=== PATIENT | female | born 1980 | race Caucasian/White ===

== ENCOUNTER 2022-12-28 03:43 | Emergency (ER) | payer OTHER, MEDICAID, SELFPAY ==
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
[2022-12-28 03:54] VITALS: BP 123/85; PULSE 124; RESP 22; TEMP 36.8; O2SAT 96; BMI 29.2
[2022-12-28] MEDS: ACETAMINOPHEN 325 MG TABLET PO (04:04)
[2022-12-28] MEDS: IBUPROFEN 400 MG TABLET PO (04:05)
== END 2022-12-28 04:19 | disposition home or self-care (01) ==
PROVIDERS: Emergency Provider Emergency Medicine
DX: Z02.89 Encounter for other administrative examinations (principal); S49.91XA Unspecified injury of right shoulder and upper arm, initial encounter; R51.9 Headache, unspecified; Y04.2XXA Assault by strike against or bumped into by another person, initial encounter
CPT/HCPCS: 99283

== ENCOUNTER 2023-03-30 09:54 | Day surgery (SDC) | payer OTHER, MEDICAID, SELFPAY ==
[2023-03-30] VITALS (7 sets, daily range): BP systolic 110–128; BP diastolic 79–89; PULSE 73–97; RESP 10–25; TEMP 36.4–36.9; O2SAT 97–100
--- NOTE | 2023-03-30 | PATH_ITS ---
[facility] Accession Number: [id number] No. of containers..01 Tissue . 01 Material submitted: . cecum - CECAL POLYP . 01 Diagnosis: Cecal Polyp: Sessile serrated adenoma. V 04/01/2023 1430 Local . 01 Electronically signed: . Jeffrey Swann MD, PhD, Pathologist NPI- [id number] . 01 Gross description: . CECAL POLYP: Received in formalin is 1 fragment(s) of fulton, soft tissue measuring 0.6 x 0.4 x 0.3 cm submitted entirely in 1 cassette(s) /[facility] 03/31/2023 1644 Local . 01 Pathologist provided ICD-10: D12.0 . 01 CPT . 356759 Specimen Comment: A courtesy copy of this report has been sent to [phone] Performed at: 01 [facility] [address] [place] [address], [place], [place] [id number] MD Rob Mcconnell MD Phone: [phone]
--- NOTE | 2023-03-30 10:23 | P.HP_ITS ---
History of Present Illness History of Present Illness Date Patient Seen: 03/30/23 Time Patient Seen: 10:23 Chief complaint: Dx Colonoscopy w/poss bx Narrative: Personal history of colon polyps family history of colon cancer. [facility] Social History Smoking Status: Never smoker Meds Home Medications and Allergies Home Medications Medication Instructions Recorded Confirmed Type buspirone 15 mg tablet 15 mg PO DAILY 03/30/23 03/30/23 History citalopram 40 mg tablet 40 mg PO DAILY 03/30/23 03/30/23 History duloxetine 60 mg capsule,delayed 60 mg PO DAILY 03/30/23 03/30/23 History release hydrochlorothiazide 25 mg tablet 25 mg PO DAILY 03/30/23 03/30/23 History oxycodone-acetaminophen 5 mg-325 5 - 325 tab PO DAILY 03/30/23 03/30/23 History mg tablet potassium citrate 10 mEq (1,080 10 meq PO DAILY 03/30/23 03/30/23 History mg) tablet,extended release pregabalin 100 mg capsule 100 mg PO DAILY 03/30/23 03/30/23 History sumatriptan succinate 100 mg tablet 100 mg PO DAILY 03/30/23 03/30/23 History trazodone 100 mg tablet 100 mg PO DAILY 03/30/23 03/30/23 History Allergies Allergy/AdvReac Type Severity Reaction Status Date / Time hazelnut Allergy Verified 03/30/23 10:08 Review of Systems Review of Systems ROS: Yes All systems reviewed with the patient and are negative except as otherwise documented Exam Const General: cooperative HENMT Head: normal to inspection Eyes General: appearance normal, both eyes and all related structures Neck Neck: normal visual inspection Chest Chest: normal inspection of the chest Resp Effort & Inspection: normal respiratory effort Cardio Rate: regular rate GI Inspection: normal to inspection Skin General: no rashes or lesions noted Neuro General: patient alert and patient awake Extrem General: normal to inspection and no pedal edema Psych Appearance: grossly normal Assessment & Plan Assessment & Plan narrative: This is a 42-year-old female with a family history of colon cancer and a personal history of colon polyps. She reports a history of hemorrhoids. Colonoscopy is pursued today.
--- NOTE | 2023-03-30 10:24 | PM.PREOP ---
Pre-operative Note Interval Note History & Physical reviewed/Exam performed by Physician: Yes Changes to H&P: No ASA Class (for procedural sedation): II
[2023-03-30] MEDS: LACTATED RINGERS 1,000 ML 100 ML IV (10:25)
--- NOTE | 2023-03-30 11:53 | P.OP.COLON_ITS ---
Operative Date/Time/Diagnoses Date of procedure: 03/30/23 Time of procedure: 11:53 Pre-op diagnosis: Personal history of colon polyps family history of colon cancer Post-op diagnosis: same Procedure & Clinicians Study performed: Colonoscopy with hot snare polypectomy Same procedure as scheduled: Yes Indications: Personal history of colon polyps family history of colon cancer. Surgeon: Conner Ambriz Procedure Notes SCOAP/Timeout: Done Procedure in detail: After the risks and benefits were explained, written and verbal informed consent was obtained. The patient was brought into the procedure room and placed into t he left lateral decubitus position. Please see anesthesia notes for sedation details. Digital rectal examination was accomplished. The scope was introduced into the patient and advanced under direct visualization to the cecum as identified by the appendiceal orifice and ileocecal valve. The scope was slowly withdrawn to carefully examine the mucosa for any defects or lesions. Comprehensive imaging was accomplished throughout the rectum including the dentate line. The colon was decompressed, the scope was then removed from the patient who tolerated the procedure well. Pediatric colonoscope Bowel prep adequate Scope withdrawal time: 9 minutes Sedation minutes: 15 Complications: none Impression: There was a 7 mm sessile polyp in the cecum removed with hot snare. The terminal ileum was interrogated and appeared visually normal. No additional pathology was appreciated throughout. Endoscopic diagnosis Cecal polyp Post-procedure Plan for aftercare: 1. Await histopathology 2. Repeat colonoscopy 5 years. Disposition: PACU
== END 2023-03-30 12:38 | disposition home or self-care (01) ==
PROVIDERS: PCP Family Medicine; Referring Provider Internal Medicine Gastroenterology; Visit Provider Internal Medicine Gastroenterology
PROC: 0DJD8ZZ Inspection of Lower Intestinal Tract, Via Natural or Artificial Opening Endoscopic (ICD-10-PCS; CPT 45378; principal; 2023-03-30 11:00)
DX: Z12.11 Encounter for screening for malignant neoplasm of colon (principal); Z86.010 Personal history of colon polyps; Z80.0 Family history of malignant neoplasm of digestive organs; D12.0 Benign neoplasm of cecum
CPT/HCPCS: 45385; J2704

== ENCOUNTER 2023-12-09 10:29 | Emergency (ER) | payer OTHER, SELFPAY ==
[2023-12-09 10:32] VITALS: BP 134/82; PULSE 112; RESP 16; TEMP 36.7; O2SAT 99; BMI 29.2
[2023-12-09 10:42] VITALS: PULSE 98
[2023-12-09 10:44] VITALS: BP 112/81; PULSE 98; RESP 15; O2SAT 97
--- NOTE | 2023-12-09 10:52 | DI.RAD.S_ITS ---
PROCEDURE: XR CHEST 1V INDICATIONS: chest pain TECHNIQUE: One view of the chest was acquired. COMPARISON: None. FINDINGS: Surgical changes and devices: None. Lungs and pleura: Lungs are clear. No pleural effusions or pneumothorax. Mediastinum: Mediastinal contours appear normal. Heart size is normal. Bones and chest wall: No suspicious bony lesions. Overlying soft tissues appear unremarkable. IMPRESSION: No acute cardiopulmonary abnormality is seen. Dictated by: Rosalba Becerra M.D. on 12/09/2023 at 11:18 Approved by: Rosalba Becerra M.D. on 12/09/2023 at 11:18
[2023-12-09 11:00] VITALS: BP 105/80; PULSE 106; RESP 20; O2SAT 98
[2023-12-09 11:01] LABS: Add Manual Diff / Slide Review NO; Basophils Absolute Auto 0 /uL (0-100); Basophils Percent Auto 0.7 % (0-2); Eosinophils Absolute Auto 100 /uL (0-450); Eosinophils Percent Auto 1.7 % (2-4); Hematocrit 40.1 % (36-46); Hemoglobin 13.8 g/dL (12.0-16.0); Lymphocytes Absolute Auto 1500 /uL (1100-4500); Mean Corpuscular HGB Conc 34.4 % (30-36); Mean Corpuscular Hemoglobin 29.3 PG (26-34); Mean Corpuscular Volume 85.4 fL (80-100); Monocytes Absolute Auto 500 /uL (0-900); Monocytes Percent Auto 7.2 % (3-14); Neutrophils Absolute Auto 4800 /uL (1500-7000); Neutrophils Percent Auto 68.4 % (50-75); Platelet Count 348 X10^3/uL (150-400); Red Blood Cell Count 4.69 X10^6/uL (4.0-5.2); Red Cell Distribution Width 13.7 % (11.6-14.8)
[2023-12-09 11:02] LABS: Prothrombin Time 11.5 SECONDS (9.4-12.5)
[2023-12-09 11:04] LABS: PTT Partial Thromboplastin Tim 30 SECONDS (25.1-36.5)
[2023-12-09 11:07] LABS: Alanine Aminotransferase 18 IU/L (<35); Albumin 4.7 g/dL (3.5-5.0); Albumin Globulin Ratio 1.3 (1.0-2.8); Alkaline Phosphatase 48 U/L (38-126); Aspartate Aminotransferase 21 IU/L (14-36); BUN Creatinine Ratio 17.9 (6-22); Bilirubin Total 0.6 mg/dL (0.2-1.3); Blood Urea Nitrogen 12 mg/dL (7-17); Calcium 9.9 mg/dL (8.4-10.2); Carbon Dioxide 25 mmol/L (22-32); Chloride 101 mmol/L (98-107); Creatine Kinase 71 U/L (30-135); Estimated Glomerular Filt Rate > 60 mL/min (>60); Globulin 3.5 g/dL (1.7-4.1); Glucose 104 mg/dL (70-100); HEMOLYSIS < 15 (0-50); Lipase 73 U/L (23-300); Potassium 3.9 mmol/L (3.4-5.1); Sodium 137 mmol/L (137-145); Total Protein 8.2 g/dL (6.3-8.2)
[2023-12-09 11:13] LABS: D Dimer 278 ng/ml (<500)
--- NOTE | 2023-12-09 11:14 | ED.CHESTPAIN ---
HPI - Chest Pain General Chief Complaint: Chest Pain Stated Complaint: chest pain sent by [facility] Time Seen by Provider: 12/09/23 10:44 Source: patient Mode of arrival: Ambulatory Limitations: no limitations History of Present Illness HPI narrative: 42-year-old female with history of anxiety, depression, PTSD, chronic back pain presents by private vehicle from home for central chest pain for 2-3 weeks. She was seen approximately 1 week ago by her PCP who performed bloodwork, an EKG, and chest XR which were normal. Patient has echo scheduled this week with PCP but came to the ED to make sure all the tests are done before she sees her PCP. Pain is central, under her breastbone, wraps around her ribs, constant. Nothing seems to make it better or worse. Denies family hx of heart disease. Related Data Home Medications Medication Instructions Recorded Confirmed buspirone 15 mg tablet 15 mg PO DAILY 03/30/23 03/30/23 citalopram 40 mg tablet 40 mg PO DAILY 03/30/23 03/30/23 duloxetine 60 mg capsule,delayed 60 mg PO DAILY 03/30/23 03/30/23 release hydrochlorothiazide 25 mg tablet 25 mg PO DAILY 03/30/23 03/30/23 oxycodone-acetaminophen 5 mg-325 5 - 325 tab PO DAILY 03/30/23 03/30/23 mg tablet potassium citrate 10 mEq (1,080 10 meq PO DAILY 03/30/23 03/30/23 mg) tablet,extended release pregabalin 100 mg capsule 100 mg PO DAILY 03/30/23 03/30/23 sumatriptan succinate 100 mg tablet 100 mg PO DAILY 03/30/23 03/30/23 trazodone 100 mg tablet 100 mg PO DAILY 03/30/23 03/30/23 Allergies Allergy/AdvReac Type Severity Reaction Status Date / Time hazelnut Allergy Verified 12/09/23 10:38 amitriptyline AdvReac Intermediate Chest Pain Verified 12/09/23 10:38 Review of Systems Review of Systems Narrative: Negative except as noted above Patient History Social History household members: significant other Smoking Status: Current every day smoker alcohol intake: current Smoking Status: Current every day smoker tobacco type: vaping alcohol intake frequency: a few times a month Substance Use Type: does not use Exam Initial Vital Signs Initial Vital Signs: Vital Signs Temperature 98.1 F 12/09/23 10:32 Pulse Rate 112 H 12/09/23 10:32 Respiratory Rate 16 12/09/23 10:32 Blood Pressure 134/82 12/09/23 10:32 Pulse Oximetry 99 12/09/23 10:32 Oxygen Delivery Method Room Air 12/09/23 10:32 Const: Awake, alert, no acute distress, nontoxic appearing Cardiac: regular rate, regular rhythm RESP: unlabored, clear bilaterally, no wheezing GI: Atraumatic, soft, pushing on midepigastric region causes pain in the upper chest MSK: Atraumatic, full range of motion, pulses equal Skin: Warm, Dry, intact, no rashes Neuro: AO x3, CN II-XII grossly intact, moves all extremities Psych: affect normal, mood normal, not suicidal, not homicidal Course Orders Ordered: ED Orders 12/09/23 10:44 Complete Blood Count AUTO DIFF Stat Comprehensive Metabolic Panel Stat D Dimer Stat Lipase Stat Lipase Stat Magnesium Stat PTT Partial Thromboplastin Shankar Stat Prothrombin Time INR Stat Troponin & CK Cardiac Panel Stat 12/09/23 10:52 XR chest 1V Stat EKG-12 Lead Stat Vital Signs Vital signs: Vital Signs - 8 hr 12/09/23 10:32 12/09/23 10:42 12/09/23 10:44 Temperature 98.1 F Pulse Rate 112 H 98 H Respiratory Rate 16 Blood Pressure 134/82 112/81 Pulse Oximetry 99 Oxygen Delivery Method Room Air 12/09/23 10:44 12/09/23 11:00 12/09/23 11:00 Temperature Pulse Rate 98 H 106 H Respiratory Rate 15 20 Blood Pressure 105/80 Pulse Oximetry 97 98 Oxygen Delivery Method Room Air 12/09/23 11:30 12/09/23 11:30 12/09/23 12:00 Temperature Pulse Rate 90 Respiratory Rate 15 Blood Pressure 114/68 105/64 Pulse Oximetry 93 Oxygen Delivery Method 12/09/23 12:00 Temperature Pulse Rate 87 Respiratory Rate 17 Blood Pressure Pulse Oximetry 94 Oxygen Delivery Method Room Air MDM - Chest Pain Differential Diagnosis Differential diagnosis: Likely fracture of rib, atypical chest pain and costochondritis Lab Data 12/09/23 10:44 12/09/23 10:44 Labs: Lab Results 12/09/23 12/09/23 Range/Units 10:44 10:44 WBC 7.0 (4.5-11.0) X10^3/uL RBC 4.69 (4.0-5.2) X10^6/uL Hgb 13.8 (12.0-16.0) g/dL Hct 40.1 (36-46) % MCV 85.4 (80-100) fL MCH 29.3 (26-34) PG MCHC 34.4 (30-36) % RDW 13.7 (11.6-14.8) % Plt Count 348 (150-400) X10^3/uL Neut % (Auto) 68.4 (50-75) % Lymph % (Auto) 22.0 L (25-40) % Daniels % (Auto) 7.2 (3-14) % Eos % (Auto) 1.7 L (2-4) % Baso % (Auto) 0.7 (0-2) % Neut # (Auto) 4800 (9593-3368) /uL Lymph # (Auto) 1500 (0646-6760) /uL Daniels # (Auto) 500 (0-900) /uL Eos # (Auto) 100 (0-450) /uL Baso # (Auto) 0 (0-100) /uL PT 11.5 (9.4-12.5) SECONDS INR 1.0 (0.9-1.3) APTT 30 (25.1-36.5) SECONDS D-Dimer 278 (<500) ng/ml Sodium 137 (137-145) mmol/L Potassium 3.9 (3.4-5.1) mmol/L Chloride 101 (98-107) mmol/L Carbon Dioxide 25 (22-32) mmol/L BUN 12 (7-17) mg/dL Creatinine 0.67 (0.52-1.04) mg/dL Estimated GFR > 60 (>60) mL/min BUN/Creatinine Ratio 17.9 (6-22) Glucose 104 H (70-100) mg/dL Calcium 9.9 (8.4-10.2) mg/dL Magnesium 2.0 (1.6-2.3) mg/dL Total Bilirubin 0.6 (0.2-1.3) mg/dL AST 21 (14-36) IU/L ALT 18 (<35) IU/L Alkaline Phosphatase 48 (38-126) U/L Total Creatine Kinase 71 (30-135) U/L Troponin I < 0.012 (0.01-0.034) ng/mL Total Protein 8.2 (6.3-8.2) g/dL Albumin 4.7 (3.5-5.0) g/dL Globulin 3.5 (1.7-4.1) g/dL Albumin/Globulin Ratio 1.3 (1.0-2.8) Lipase 73 72 (23-300) U/L ECG Data Interpretation: normal sinus rhythm, no STEMI MDM Narrative Medical decision making narrative: Well-appearing patient with persistent substernal chest pain. She states that she feels like there is a mass in the center of her chest where the pain is located. I do not palpate any sternal abnormalities, patient points to the location of her xiphoid bone as where she feels the swelling. Reportedly negative labs and imaging at outside facility 1 week prior. We will order repeat labs, x-ray imaging, D-dimer. Laboratory work is reviewed, no abnormalities identified, troponins negative, D-dimer is negative, chest x-ray shows no acute process, no indication for infection or other obvious cause of patient's symptoms. Patient reassessed, resting comfortably in bed. I explained the no obvious cause of patient's symptoms were found at this time, recommended patient keep her PCP appointment as previously scheduled later this week for her echocardiogram and further workup. ED return precautions discussed at bedside. All questions answered at the time of discharge. Discharge Plan Departure Patient Disposition: Home Clinical Impression: Chest pain Instructions: DI for Chest Pain Prescriptions: No Action buspirone 15 mg tablet 15 mg PO DAILY citalopram 40 mg tablet 40 mg PO DAILY sumatriptan succinate 100 mg tablet 100 mg PO DAILY oxycodone-acetaminophen 5-325 mg tablet 5 - 325 tab PO DAILY trazodone 100 mg tablet 100 mg PO DAILY potassium citrate 10 mEq (1,080 mg) tablet extended release 10 meq PO DAILY hydrochlorothiazide 25 mg tablet 25 mg PO DAILY duloxetine 60 mg capsule,delayed release(DR/EC) 60 mg PO DAILY pregabalin 100 mg capsule 100 mg PO DAILY Referrals: Cherie Nixon DO [Primary Care Provider] - Stand Alone Forms: Patient Portal/API
[2023-12-09 11:18] LABS: Troponin I < 0.012 ng/mL (0.01-0.034)
[2023-12-09 11:30] VITALS: BP 114/68; PULSE 90; RESP 15; O2SAT 93
[2023-12-09 11:41] LABS: Lipase 72 U/L (23-300)
[2023-12-09 12:00] VITALS: BP 105/64; PULSE 87; RESP 17; O2SAT 94
== END 2023-12-09 12:16 | disposition home or self-care (01) ==
PROVIDERS: Emergency Provider Emergency Medicine; PCP Family Medicine
DX: R07.9 Chest pain, unspecified (principal)
CPT/HCPCS: 36415; 71045; 80053; 82550; 83690; 83735; 84484; 85025; 85379; 85610; 85730; 93005; 93010; 99284

== ENCOUNTER → 2024-05-27 12:01 | Outpatient (CLI) | payer OTHER, SELFPAY ==
--- NOTE | 2024-05-27 12:03 | DI.RAD.S_ITS ---
PROCEDURE: XR LUMBAR SPINE 2-3V INDICATIONS: Back pain TECHNIQUE: 3 views of the lumbar spine were acquired. COMPARISON: None. FINDINGS: Bones: 5 [id number] vertebrae are present. There is normal bony alignment. No vertebral body compression fractures. No suspicious bony lesions. Minimal to mild foraminal narrowing at L5-S1. Soft tissues: Overlying bowel gas pattern is normal. No suspicious soft tissue calcifications. IMPRESSION: Minimal to mild foraminal narrowing L5-S1. Dictated by: Ragini Nettles M.D. on 05/27/2024 at 15:16 Approved by: Ragini Nettles M.D. on 05/27/2024 at 15:17
--- NOTE | 2024-05-27 12:03 | DI.RAD.S_ITS ---
PROCEDURE: XR THORACIC SPINE 3V INDICATIONS: Back pain TECHNIQUE: 3 views of the thoracic spine were acquired. COMPARISON: None. FINDINGS: Bones: No fractures or dislocations. No suspicious bony lesions. 12 pairs of ribs are noted, and appear intact where visualized. Soft tissues: No paravertebral stripe thickening. IMPRESSION: No acute bony abnormality. Dictated by: Ragini Nettles M.D. on 05/27/2024 at 15:16 Approved by: Ragini Nettles M.D. on 05/27/2024 at 15:16
== END ==
PROVIDERS: PCP Family Medicine; Referring Provider Family Medicine; Visit Provider Family Medicine
DX: M48.061 Spinal stenosis, lumbar region without neurogenic claudication (principal); M54.6 Pain in thoracic spine; M54.50 Low back pain, unspecified; G89.29 Other chronic pain
CPT/HCPCS: 72072; 72100

== ENCOUNTER 2025-02-02 21:46 | Emergency (ER) | payer OTHER, SELFPAY ==
[2025-02-02 22:13] VITALS: BP 118/74; PULSE 106; RESP 20; TEMP 36.5; O2SAT 94; BMI 25.2
--- NOTE | 2025-02-02 23:42 | ED_ITS ---
HPI - Abdominal Pain General Chief Complaint: Abdominal Pain Stated Complaint: constipation, possible hemorhoid issue Time Seen by Provider: 02/02/25 23:42 Source: patient and family Mode of arrival: Wheelchair History of Present Illness HPI narrative: 44-year-old female past medical history of no significance presents to the ED from home for evaluation of abdominal pain/constipation patient states that she just had diastasis rectus and abdominal plasty repair at [facility] last Thursday01/27/2025. She states that since then she has not had a normal bowel movement. She states that she is having a large stools with liquid passing gas states that she has been taking some stool softeners but states that she has been taking opiates for her pain in her abdomen after the surgery. She was told that she should not push given the fact that it can cause dehiscence. She states that she does also has a history of hemorrhoids internal and external and she feels like there is a lot of stool/pressure within her rectal vault and is unsure if it is both due to the hemorrhoids and/or if it is due to the stool. According to the patient the has been did help her with an enema prior to arrival but still having the pressure/discomfort. Related Data Home Medications Medication Instructions Recorded Confirmed duloxetine 60 mg capsule,delayed 60 mg PO DAILY 03/30/23 09/05/24 release hydrochlorothiazide 25 mg tablet 25 mg PO DAILY 03/30/23 09/05/24 potassium citrate 10 mEq (1,080 10 meq PO DAILY 03/30/23 09/05/24 mg) tablet,extended release sumatriptan succinate 100 mg tablet 100 mg PO DAILY 03/30/23 09/05/24 trazodone 100 mg tablet 100 mg PO DAILY 03/30/23 09/05/24 lamotrigine 100 mg tablet 100 mg PO DAILY 05/27/24 09/05/24 medroxyprogesterone 150 mg/mL 150 mg IM [id number] 05/27/24 09/05/24 intramuscular suspension naproxen 500 mg tablet 500 mg PO BID PRN 05/27/24 09/05/24 omeprazole 20 mg capsule,delayed 20 mg PO BID 05/27/24 09/05/24 release ondansetron 4 mg disintegrating 4 mg PO Q8H 05/27/24 09/05/24 tablet valacyclovir 500 mg tablet 500 mg PO DAILY 05/27/24 09/05/24 buspirone 30 mg tablet 30 mg PO BID 06/17/24 09/05/24 pregabalin 100 mg capsule 200 mg PO BEDTIME 06/17/24 09/05/24 Previous Rx's Medication Instructions Recorded oxycodone-acetaminophen 5 mg-325 1 tab PO BID PRN pain #56 tabs 08/08/24 mg tablet ondansetron HCl 4 mg tablet 4 mg PO Q8H PRN nausea and 09/05/24 vomiting #14 tabs Allergies Allergy/AdvReac Type Severity Reaction Status Date / Time hazelnut Allergy Verified 09/05/24 15:42 amitriptyline AdvReac Intermediate Chest Pain Verified 09/05/24 15:42 Review of Systems Review of Systems Narrative: General: Denies fever, chills, weight loss HEENT: Denies headache, eye drainage, eye irritation, head trauma, sore throat, voice change Cardiovascular: Denies any chest pain, palpitations, tachycardia Respiratory: Denies any shortness of breath, cough, wheeze, stridor GI/: Positive rectal pressure, constipation Denies any abdominal pain, nausea, vomiting, diarrhea, bright red blood per rectum, melanotic stools, urinary frequency, urinary retention, dysuria, hematuria MSK: Denies any joint pain, muscle pains, swelling Skin: Denies any rashes, lesions, discoloration Neuro: Denies any headache, lightheadedness, dizziness, fainting, weakness Psych: Denies SI/HI Patient History Medical History History of bipolar disorder Carpal tunnel syndrome Ovarian cyst Irregular menstrual cycle Herpes Kidney stones Hemorrhoid PTSD (post-traumatic stress disorder) Depression Migraines Irritable bowel syndrome Chronic low back pain Headache Hx of colonic polyp Surgical History Anesthesia History of carpal tunnel release (~2017) S/P removal of ovarian cyst (~2001) History of hernia repair (~2007) Family History Mother Cancer History of heart disease Crohn's disease CREST syndrome Grandmother Cancer History of heart disease Social History household members: significant other Smoking Status: Former smoker alcohol intake: current Smoking Status: Former smoker tobacco type: vaping alcohol intake frequency: a few times a month Exam Narrative Exam Narrative: General: Cooperative, comfortable, well-developed, not in acute distress HEENT: Normocephalic, atraumatic, PERRLA, normal sclera, eyelids normal, Neck: Active full range of motion, atraumatic Chest: Normal to inspection, negative crepitus, no overlying erythema ecchymosis Respiratory: Normal respiratory effort, not in acute respiratory distress, clear to auscultation bilaterally negative cough, wheeze, tachypnea, rhonchi, rales Cardiology: Regular rate rhythm negative gallop, murmur, rubs GI/: Patient with pelvic binder on, drain noted to be in place no abnormalities, exam deferred MSK: Full range of active range of motion of all 4 extremities, atraumatic Skin: No rashes lesions noted Neuro: Alert awake oriented x3, moves all 4 extremities spontaneously, cranial nerves intact, able to answer all questions appropriately follows commands appropriately Psych: Cooperative, negative suicidal or homicidal ideations Initial Vital Signs Initial Vital Signs: Vital Signs Temperature 97.7 F 02/02/25 22:13 Pulse Rate 106 H 02/02/25 22:13 Respiratory Rate 20 02/02/25 22:13 Blood Pressure 118/74 02/02/25 22:13 Pulse Oximetry 94 02/02/25 22:13 Oxygen Delivery Method Room Air 02/02/25 22:13 Course Orders Ordered: ED Orders 02/02/25 23:51 CBC Auto Diff [Complete Blood Count AUTO DIFF] Stat CMP [Comprehensive Metabolic Panel] Stat Lactate (Lactic Acid) Stat Lipase Stat MAG [Magnesium] Stat 02/02/25 23:52 CT abdomen pelvis w con Stat Discontinued Medications Sodium Chloride (Normal Saline 0.9%) 1,000 mls @ 1,000 mls/hr IV BOLUS ONE Stop: 02/03/25 00:50 Last Admin: 02/03/25 00:46 Dose: 1,000 mls/hr Documented By: MERCEDES Lactulose (Lactulose 20 Gm/30 Ml Solution) 30 gm PO NOW ONE Stop: 02/02/25 23:52 Last Admin: 02/03/25 00:16 Dose: 30 gm Documented By: MERCEDES Vital Signs Vital signs: Vital Signs - 8 hr 02/02/25 22:13 Temperature 97.7 F Pulse Rate 106 H Respiratory Rate 20 Blood Pressure 118/74 Pulse Oximetry 94 Oxygen Delivery Method Room Air MDM - Abdominal Pain Differential Diagnosis Differential diagnosis: Likely abdominal pain, constipation and other (Small- bowel obstruction) Lab Data 02/03/25 00:08 02/03/25 00:08 Labs: Lab Results 02/03/25 Range/Units 00:08 WBC 12.6 H (4.5-11.0) X10^3/uL RBC 4.00 (4.0-5.2) X10^6/uL Hgb 12.1 (12.0-16.0) g/dL Hct 35.4 L (36-46) % MCV 88.4 (80-100) fL MCH 30.3 (26-34) PG MCHC 34.2 (30-36) % RDW 12.7 (11.6-14.8) % Plt Count 438 H (150-400) X10^3/uL Neut % (Auto) 88.5 H (50-75) % Lymph % (Auto) 6.3 L (25-40) % Vigo % (Auto) 3.8 (3-14) % Eos % (Auto) 1.3 L (2-4) % Baso % (Auto) 0.1 (0-2) % Neut # (Auto) 42842 H (4485-4404) /uL Lymph # (Auto) 800 L (9186-5808) /uL Vigo # (Auto) 500 (0-900) /uL Eos # (Auto) 200 (0-450) /uL Baso # (Auto) 0 (0-100) /uL Sodium 139 (137-145) mmol/L Potassium 3.8 (3.4-5.1) mmol/L Chloride 101 (98-107) mmol/L Carbon Dioxide 29 (22-32) mmol/L BUN 12 (7-17) mg/dL Creatinine 0.63 (0.52-1.04) mg/dL Estimated GFR > 60 (>60) mL/min BUN/Creatinine Ratio 19.0 (6-22) Glucose 135 H (70-100) mg/dL Lactate 1.1 (0.7-2.1) mmol/L Calcium 9.3 (8.4-10.2) mg/dL Magnesium 2.4 H (1.6-2.3) mg/dL Total Bilirubin 0.2 (0.2-1.3) mg/dL AST 26 (14-36) IU/L ALT 17 (<35) IU/L Alkaline Phosphatase 54 (38-126) U/L Total Protein 7.0 (6.3-8.2) g/dL Albumin 4.0 (3.5-5.0) g/dL Globulin 3.0 (1.7-4.1) g/dL Albumin/Globulin Ratio 1.3 (1.0-2.8) Lipase 31 (23-300) U/L Imaging Data CT scan - abdomen/pelvis: Radiologist's Impression: [address] [address] [address] Scan Report Signed Patient: Feli Ricks MR#: [id number] : 1980 Acct:[id number] Age/Sex: 44 / F Date of Service: 02/02/25 Loc: ED Accession Number: [id number] Procedure: CT abdomen pelvis w con Ordering Provider: Kushal Dinero D.O. PROCEDURE: CT ABDOMEN PELVIS W CON INDICATIONS: Tenesmus status post abdominal plasty TECHNIQUE: After the administration of intravenous contrast, axial sections acquired from the lung bases to the pubic symphysis. Coronal and sagittal reformats were performed. For radiation dose reduction, the following was used: automated exposure control, adjustment of mA and/or kV according to patient size. COMPARISON: None. FINDINGS: Image quality: Diagnostic Lower chest: Septal thickening and atelectasis in the lower lungs. No pleural effusions. Normal heart size. Liver: Unremarkable Gallbladder and biliary system: Unremarkable, nondilated. Pancreas: No ductal dilation. No gallbladder inflammation. Spleen: Nonenlarged Adrenals: No discrete nodules Kidneys: No solid mass or hydronephrosis. Vessels and lymph nodes: Main portal vein appears patent. No abdominal aortic aneurysm or pathologic lymphadenopathy by size criteria. Bowel and peritoneum: Small amount pneumoperitoneum is seen. No pathologic ascites or drainable abscess. There is large fecal loading, including a large rectal stool ball. Perirectal edema is present. No small bowel obstruction. Nondilated appendix Body wall: Anterior abdominal wall postsurgical changes. A small fluid collection measuring 3.2 x 1.5 cm is seen along the midline anterior abdominal wall. Small foci of subcutaneous gas is present. A drain is in place. Pelvis: Bladder is unremarkable. Reproductive organs are unremarkable on limited CT evaluation suspect 2.6 cm left follicular cyst. Bones: Degenerative osseous changes. No acute or suspicious abnormality. IMPRESSION: Large fecal loading including a large rectal stool ball. Perirectal fat stranding. Findings may represent stercoral proctocolitis. No small bowel obstruction. Nondilated appendix. Small pneumoperitoneum, possibly postsurgical. Correlate with timing of surgery. Lower lung septal thickening, possibly edema, and atelectasis Postsurgical changes of the anterior abdominal wall. Small fluid collection along the midline, likely a postsurgical seroma or hematoma, though sterility is indeterminate on imaging. Other findings above. MDM Narrative Medical decision making narrative: 44-year-old female with recent abdominal plasty on 01/27/2025 states that she has not had a normal bowel movement since then has been on opiate medications secondary to her pain in her abdomen, she states that she has a history of hemorrhoids as well and feels like she has a large stool ball in her rectal vault that she is not able to pass. States that she has tried stool softeners and an enema prior to arrival without any relief. Patient lab work consistent with a mild elevation in white blood cell of 12.6 more likely elevated secondary to recent surgery, lactate normal, creatinine normal, patient was given 30 of lactulose with slight improvement of symptoms however patient stating that she still feels like she needs to urinate is requesting straight cath here. CT showing large fecal load in the rectal vault with surrounding fat stranding consistent with stair colitis therefore digital disimpaction contraindicated at this time. Remainder of CT scan results consistent with recent abdominal surgery. Informed patient that we will try oral GoLYTELY at home, also informed her to follow up with her surgeon and her primary care doctor she is agreeable with the this plan she will be sent home with strict return precautions she verbalized understanding of this and agrees to being discharged home with outpatient follow up Discharge Plan Departure Patient Disposition: Home Clinical Impression: Constipation Instructions: DI for Constipation Activity Restrictions/Additional Instructions: You can take up to 480 mL of GoLYTELY in 24 hours, please take about 60 mL every 2-3 hours until improvement of your symptoms Please follow up with your surgeon and your primary care doctor Please read the discharge instructions sheet carefully and bring all papers to all doctor follow-up visits, as it may contain information that your doctor may want to see. Disease processes change and evolve, if your symptoms worsen or if you develop any new symptoms that are concerning to you please return for evaluation. Your evaluation today does not show any evidence of any life- threatening/serious illnesses requiring admission to the hospital or surgery. Please follow-up with your doctor for re-evaluation in approximately 1 day. Seek immediate medical attention for any worrisome symptoms. *If you do not have a primary care provider please contact the [facility] Resource line at [phone]. They will ask some questions about your medical history and help get you set up with a doctor in the community. Prescriptions: No Action medroxyprogesterone 150 mg/mL suspension 150 mg IM [id number] naproxen 500 mg tablet 500 mg PO BID PRN lamotrigine 100 mg tablet 100 mg PO DAILY omeprazole 20 mg capsule,delayed release(DR/EC) 20 mg PO BID valacyclovir 500 mg tablet 500 mg PO DAILY ondansetron 4 mg tablet,disintegrating 4 mg PO Q8H buspirone 30 mg tablet 30 mg PO BID ondansetron HCl 4 mg tablet 4 mg PO Q8H PRN (Reason: nausea and vomiting) Qty: 14 0RF oxycodone-acetaminophen 5-325 mg tablet 1 tab PO BID PRN (Reason: pain) Qty: 56 0RF sumatriptan succinate 100 mg tablet 100 mg PO DAILY trazodone 100 mg tablet 100 mg PO DAILY potassium citrate 10 mEq (1,080 mg) tablet extended release 10 meq PO DAILY hydrochlorothiazide 25 mg tablet 25 mg PO DAILY duloxetine 60 mg capsule,delayed release(DR/EC) 60 mg PO DAILY pregabalin 100 mg capsule 200 mg PO BEDTIME Referrals: Bhanu Ivory MD [Primary Care Provider] - Stand Alone Forms: Patient Portal/API/Survey
--- NOTE | 2025-02-02 23:52 | DI.CT.S_ITS ---
PROCEDURE: CT ABDOMEN PELVIS W CON INDICATIONS: Tenesmus status post abdominal plasty TECHNIQUE: After the administration of intravenous contrast, axial sections acquired from the lung bases to the pubic symphysis. Coronal and sagittal reformats were performed. For radiation dose reduction, the following was used: automated exposure control, adjustment of mA and/or kV according to patient size. COMPARISON: None. FINDINGS: Image quality: Diagnostic Lower chest: Septal thickening and atelectasis in the lower lungs. No pleural effusions. Normal heart size. Liver: Unremarkable Gallbladder and biliary system: Unremarkable, nondilated. Pancreas: No ductal dilation. No gallbladder inflammation. Spleen: Nonenlarged Adrenals: No discrete nodules Kidneys: No solid mass or hydronephrosis. Vessels and lymph nodes: Main portal vein appears patent. No abdominal aortic aneurysm or pathologic lymphadenopathy by size criteria. Bowel and peritoneum: Small amount pneumoperitoneum is seen. No pathologic ascites or drainable abscess. There is large fecal loading, including a large rectal stool ball. Perirectal edema is present. No small bowel obstruction. Nondilated appendix Body wall: Anterior abdominal wall postsurgical changes. A small fluid collection measuring 3.2 x 1.5 cm is seen along the midline anterior abdominal wall. Small foci of subcutaneous gas is present. A drain is in place. Pelvis: Bladder is unremarkable. Reproductive organs are unremarkable on limited CT evaluation suspect 2.6 cm left follicular cyst. Bones: Degenerative osseous changes. No acute or suspicious abnormality. IMPRESSION: Large fecal loading including a large rectal stool ball. Perirectal fat stranding. Findings may represent stercoral proctocolitis. No small bowel obstruction. Nondilated appendix. Small pneumoperitoneum, possibly postsurgical. Correlate with timing of surgery. Lower lung septal thickening, possibly edema, and atelectasis Postsurgical changes of the anterior abdominal wall. Small fluid collection along the midline, likely a postsurgical seroma or hematoma, though sterility is indeterminate on imaging. Other findings above. Dictated by: Min Olson M.D. on 02/03/2025 at 0:42 Approved by: Min Olson M.D. on 02/03/2025 at 0:48
[2025-02-03] MEDS: LACTULOSE 20 GM/30 ML SOLUTION 30 GM PO (00:16)
[2025-02-03 00:19] LABS: Add Manual Diff / Slide Review NO; Basophils Absolute Auto 0 /uL (0-100); Basophils Percent Auto 0.1 % (0-2); Eosinophils Absolute Auto 200 /uL (0-450); Eosinophils Percent Auto 1.3 % (2-4); Hematocrit 35.4 % (36-46); Hemoglobin 12.1 g/dL (12.0-16.0); Lymphocytes Absolute Auto 800 /uL (1100-4500); Lymphocytes Percent Auto 6.3 % (25-40); Mean Corpuscular HGB Conc 34.2 % (30-36); Mean Corpuscular Hemoglobin 30.3 PG (26-34); Mean Corpuscular Volume 88.4 fL (80-100); Monocytes Absolute Auto 500 /uL (0-900); Monocytes Percent Auto 3.8 % (3-14); Neutrophils Absolute Auto 11100 /uL (1500-7000); Neutrophils Percent Auto 88.5 % (50-75); Platelet Count 438 X10^3/uL (150-400); Red Cell Distribution Width 12.7 % (11.6-14.8); White Blood Cell Count 12.6 X10^3/uL (4.5-11.0)
[2025-02-03 00:31] LABS: Alanine Aminotransferase 17 IU/L (<35); Albumin Globulin Ratio 1.3 (1.0-2.8); Alkaline Phosphatase 54 U/L (38-126); Aspartate Aminotransferase 26 IU/L (14-36); Bilirubin Total 0.2 mg/dL (0.2-1.3); Blood Urea Nitrogen 12 mg/dL (7-17); Calcium 9.3 mg/dL (8.4-10.2); Carbon Dioxide 29 mmol/L (22-32); Chloride 101 mmol/L (98-107); Estimated Glomerular Filt Rate > 60 mL/min (>60); Glucose 135 mg/dL (70-100); HEMOLYSIS < 15 (0-50); Lactate (Lactic Acid) 1.1 mmol/L (0.7-2.1); Lipase 31 U/L (23-300); Magnesium 2.4 mg/dL (1.6-2.3); Potassium 3.8 mmol/L (3.4-5.1); Sodium 139 mmol/L (137-145)
[2025-02-03] MEDS: SODIUM CHLORIDE 0.9% 1,000 ML 1000 ML IV (00:46)
[2025-02-03 02:27] VITALS: PULSE 106
[2025-02-03 02:28] VITALS: BP 117/66; PULSE 107; O2SAT 96
[2025-02-03] MEDS: PEG3350/SOD SULF,BICARB,CL/KCL 4,000 ML SOLUTION 2000 ML PO (02:28)
== END 2025-02-03 02:44 | disposition home or self-care (01) ==
PROVIDERS: Emergency Provider Student in an Organized Health Care Education/Training Program; PCP Family Medicine
DX: K59.00 Constipation, unspecified (principal); R10.9 Unspecified abdominal pain
CPT/HCPCS: 36415; 51701; 74177; 80053; 83605; 83690; 83735; 85025; 96360; 99284; Q9967